=== PATIENT | female | born 1990 | race African-American/Black ===

== ENCOUNTER 2018-12-05 01:34 | Emergency (ER) | payer BC ==
[~2018-12-05] VITALS: Ht 175.3 cm; Wt 61.0 kg
[2018-12-05] MEDS ORDERED: LIDOCAINE HCL 1% 20ML VIAL (Pyxis) INJ INFIL ONE (02:15)
[2018-12-05] MEDS ORDERED: IBUPROFEN 600MG TABLET PO ONE (02:15)
[2018-12-05] MEDS ORDERED: BACITRACIN ZINC OINT UDPKT TOP ONE (02:15)
[2018-12-05] MEDS ORDERED: BACITRACIN 15GM TUBE TOP STA (02:18)
[2018-12-05 03:30] VITALS: BP 132/55
== END 2018-12-05 03:30 | disposition home or self-care (01) ==
LOC: ER 01:34
DX: N75.1 Abscess of Bartholin's gland (principal)
CPT/HCPCS: 56405; 99284; J3490

== ENCOUNTER 2022-02-11 15:59 | Emergency (ER) | payer MEDICAID ==
[~2022-02-11] VITALS: Ht 175.3 cm; Wt 59.0 kg
[2022-02-11 16:12] VITALS: BP 122/82
[2022-02-11 18:00] LABS: BASOPHILS % 0.5 % (0.0-2.0); EOSINOPHILS % 0.6 % (0.0-5.0); HEMATOCRIT. 42.9 % (36.0-48.0); HEMOGLOBIN. 14.2 g/dL (12.0-16.0); LYMPHOCYTES % 26.7 % (20.0-50.0); MEAN CORPUSCULAR HEMOGLOBIN 29.8 pg (28.0-32.0); MEAN CORPUSCULAR VOLUME 90.3 fL (81.0-99.0); MEAN PLATELET VOLUME 9.1 fl (7.4-10.4); MONOCYTES % 5.8 % (2.0-8.0); NEUTROPHILS % 66.4 % (40.0-76.0); PLATELET 285 x1000/uL (130-400); RED BLOOD CELL COUNT 4.75 mill/uL (4.2-5.4); RED CELL DISTRIBUTION WIDTH 12.8 % (11.6-14.6)
[2022-02-11 18:08] LABS: CLARITY URINE CLOUDY (CLEAR); COLOR URINE RED (YELLOW); KETONES URINE NEGATIVE (NEGATIVE); LEUKOCYTE ESTERASE URINE 1+ (NEGATIVE); NITRITE URINE NEGATIVE (NEGATIVE); OCCULT BLOOD URINE 3+ (NEGATIVE); PROTEIN URINE 3+ (NEGATIVE); SPECIFIC GRAVITY URINE 1.024 (1.005-1.030)
[2022-02-11 18:09] LABS: CHLORIDE 107 mEq/L (98-107)
[2022-02-11 18:20] LABS: B-HCG QUANTITATIVE < 1 mIU/mL (<3)
[2022-02-11 18:25] LABS: PROTHROMBIN TIME 10.6 sec (9.6-11.0)
== END 2022-02-11 20:56 | disposition home or self-care (01) ==
LOC: ER 15:59
DX: N92.0 Excessive and frequent menstruation with regular cycle (principal); Z32.02 Encounter for pregnancy test, result negative
CPT/HCPCS: 36415; 76830; 76856; 80053; 81003; 81025; 84702; 85025; 86850; 86900; 99284